=== PATIENT | male | born 1965 | race Caucasian/White ===

== ENCOUNTER 2018-09-08 11:52 | Inpatient (IN) | payer OTHER ==
[~2018-09-08] VITALS: Ht 188 cm; Wt 126.1 kg
[2018-09-08 12:00] VITALS: BP 138/86
[2018-09-08] MEDS ORDERED: VENTOLIN HFA 1818 GM INH (12:02)
[2018-09-08] MEDS ORDERED: MEDROLDOSEPACK PO (12:02)
[2018-09-08] MEDS ORDERED: AUGMENTIN 500-1 EACH PO (12:02)
[2018-09-08 12:37] LABS: HEMATOCRIT 42.2 % (42.0-52.0); HEMOGLOBIN 14.3 gm/dL (14.0-18.0); MCH 31.5 pg (26.0-34.0); MCV 92.7 fL (80.0-100.0); MPV 8.2 fl. (7.2-11.1); NUCLEATED RBCS 0 /100WBC; PLATELET COUNT* 243 thou/uL (150-400); RBC 4.55 mil/uL (4.50-6.00); RDW-CV 14.3 % (10.5-14.5); WBC 19.6 thou/uL (4.0-11.0)
[2018-09-08 12:49] LABS: ANION GAP 9 mmol/L (7-16); BUN 21 mg/dL (7-18); CALCIUM 8.6 mg/dL (8.5-10.1); CHLORIDE 93 mmol/L (98-107); CO2 30 mmol/L (21-32); CREATININE 1.2 mg/dL (0.6-1.3); GLUCOSE 122 mg/dL (70-99); POTASSIUM 3.2 mmol/L (3.5-5.1); SODIUM 132 mmol/L (136-145)
[2018-09-08 12:55] LABS: ALBUMIN 2.7 g/dL (3.4-5.0); ALKALINE PHOSPHATASE 92 U/L (46-116); SGOT 45 U/L (15-37); SGPT 47 U/L (30-65); TOTAL BILIRUBIN 0.7 mg/dL (<0.1-1.0); TOTAL PROTEIN 7.9 g/dL (6.4-8.2); TROPONIN-I LEVEL <0.06 ng/mL (<0.06)
[2018-09-08 13:02] LABS: ABSOLUTE LYMPHOCYTES 0.8 thou/uL (0.8-5.3); ABSOLUTE MONOCYTES 1.6 thou/uL (0.0-1.2); ABSOLUTE NEUTROPHILS 17.2 thou/uL (1.6-8.1); ANISOCYTOSIS 1+; PLATELET ESTIMATE ADEQUATE; POIKILOCYTOSIS 1+
[2018-09-08 14:00] VITALS: BP 138/78
[2018-09-08 16:00] VITALS: BP 138/95
--- NOTE | 2018-09-08 18:17 | EKG ---
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
--- NOTE | 2018-09-08 18:20 | NUR ---
VSS, ASSIMED CARE OF PT FROM ER, ASSESSMENT PERFORMED AND CHARTED, FALL PRECAUTIONS IN PLACE AND CALL LIGHT IN REACH, PT IS A&O4 ON 3L NC UP AD STEF, DENIES ANY PAIN, TRACING SR ON THE MONITOR, PT GOAL IS TO IMPROVE BREATHING AND SAFETY, WILL FOLLOW WITH PLAN OF CARE, AND HOURLY ROUNDS
[2018-09-08 20:30] VITALS: BP 137/85
[2018-09-08 22:37] LABS: URINE BILIRUBIN NEGATIVE (Negative); URINE BLOOD 2+ (Negative); URINE CLARITY CLEAR; URINE COLOR YELLOW; URINE GLUCOSE-RANDOM TRACE (Negative); URINE KETONES NEGATIVE (Negative); URINE LEUKOCYTES NEGATIVE (Negative); URINE NITRITE NEGATIVE (Negative); URINE PROTEIN NEGATIVE (Negative); URINE UROBILINOGEN 0.2 E.U./dl (0.2-1.0)
[2018-09-08 22:52] LABS: BACTERIA None Seen /HPF (None Seen); CASTS None Seen /LPF (None Seen); CRYSTALS None Seen /LPF (None Seen); SQUAMOUS 0-3 Few /LPF (0-3); URINE RBC 0-2 Rare /HPF (0-2); URINE WBC None Seen /HPF (0-5)
[2018-09-08 23:30] VITALS: BP 146/72
[2018-09-09 04:00] VITALS: BP 150/90
[2018-09-09 05:21] LABS: HEMATOCRIT 39.3 % (42.0-52.0); HEMOGLOBIN 13.4 gm/dL (14.0-18.0); MCHC 34.1 g/dL (28.0-37.0); MCV 93.9 fL (80.0-100.0); MPV 8.6 fl. (7.2-11.1); RBC 4.18 mil/uL (4.50-6.00); RDW-CV 14.7 % (10.5-14.5); WBC 13.4 thou/uL (4.0-11.0)
--- NOTE | 2018-09-09 05:36 | NUR ---
VSS. 4L O2 PER NC, O2 SAT 92%. PT REPORTS WORSENED SOA WITH ACTIVITY. PRODUCTIVE COUGH, SPECIMEN SENT TO LAB. POTASSIUM REPLACED PER PROTOCOL, AWAITING RESULTS OF REDRAW. PT HAS DENIED PAIN THROUGHOUT THE NIGHT. CALL LIGHT WITHIN REACH.
[2018-09-09 05:58] LABS: ALBUMIN 2.3 g/dL (3.4-5.0); CALCIUM 8.4 mg/dL (8.5-10.1); CREATININE 1.1 mg/dL (0.6-1.3); POTASSIUM 4.1 mmol/L (3.5-5.1); TOTAL BILIRUBIN 0.4 mg/dL (<0.1-1.0); TOTAL PROTEIN 7.1 g/dL (6.4-8.2)
--- NOTE | 2018-09-09 08:00 | NUR ---
PT RESTING IN BED, APPEARS ALERT O X 4, DENIES CHEST PAIN, DENIES SOB AT REST, ON O2 AT 4L PER NC, O2 SATS 94% , SIGNIFICANT OTHER AT BEDSIDE
[2018-09-09 08:47] VITALS: BP 146/88
[2018-09-09 11:30] VITALS: BP 136/82
--- NOTE | 2018-09-09 17:23 | NUR ---
PT RESTING IN BED WITHOUT C/O , REMAINS ALERT O X4, DENIES CHEST PAIN, DENIES SOB AT RES, ALTHOUGH APPEARS SL DYSPNEIC AT REST, ON O2 AT 4 PER NC, CONT ON IV ABX , PO STEROIDS, TELE HAS BEEN D/C
[2018-09-09 19:42] VITALS: BP 158/95
[2018-09-10] VITALS: BP 160/93
[2018-09-10 02:05] LABS: GLYCOHEMOGLOBIN (HGB A1C) 5.6 % (4.8-5.6)
--- NOTE | 2018-09-10 03:46 | NUR ---
Pt reports increasing SOA. IVF running at 150 ml/hr X4 bags and 5th bag running when pt c/o SOA at rest while trying to sleep. IVF stopped at 0340. Pt coughs when taking deep breaths. Paged RT for breathing treatment as well. BP 150-160/90s for this shift. Pt states he has been voiding regularly. Breath snds coarse with some crackles. Will continue to monitor.
[2018-09-10 05:39] LABS: CALCIUM 8.4 mg/dL (8.5-10.1); HEMATOCRIT 41.3 % (42.0-52.0); HEMOGLOBIN 14.1 gm/dL (14.0-18.0); MCH 32.5 pg (26.0-34.0); MCHC 34.2 g/dL (28.0-37.0); MCV 94.8 fL (80.0-100.0); MPV 8.5 fl. (7.2-11.1); NUCLEATED RBCS 0 /100WBC; POTASSIUM 3.6 mmol/L (3.5-5.1); RBC 4.35 mil/uL (4.50-6.00); RDW-CV 14.6 % (10.5-14.5); WBC 15.7 thou/uL (4.0-11.0)
[2018-09-10 06:14] LABS: PLATELET COUNT* 331 thou/uL (150-400)
--- NOTE | 2018-09-10 08:15 | NUR ---
PT RESTING IN BED, APPEARS ALERT O X 4, DENIES CHEST PAIN, DENIES SOB AT REST, SLTHOUGH APPEARS SL DYSPNEIC AT REST, ON O2 AT 4L PER NC, DATS 91-92%, MOIST COUGH, ABLE TO EXPECTORATE SMALL AMT OF YELLOWISH BLOOD TINGED SPUTUM.
[2018-09-10 08:30] VITALS: BP 158/92
[2018-09-10 08:53] LABS: ABSOLUTE LYMPHOCYTES 2.2 thou/uL (0.8-5.3); ABSOLUTE MONOCYTES 1.4 thou/uL (0.0-1.2); ABSOLUTE NEUTROPHILS 12.1 thou/uL (1.6-8.1); METAMYELOCYTES 1 %
[2018-09-10 08:55] LABS: ANISOCYTOSIS Occasional; PLATELET ESTIMATE ADEQUATE
[2018-09-10 15:50] VITALS: BP 143/83
--- NOTE | 2018-09-10 18:56 | NUR ---
PT REMAINS ALERT O X 4, DENIES CHEST PAIN, REMAINS , CONT ON PO AND IV ABX, PO STEROIDS. IS DYSPNEIC AT REST, SATS 01-02 % ON 4L PER NC, COUGHED UP SMALL OF BLOOD TINGED SOUTUM THIS AM, CHEST XRAY, CONT TO SHOW L,OER LOBE PNEUMONIA, PULMONADY CONSULTED
[2018-09-10 20:02] VITALS: BP 151/83
--- NOTE | 2018-09-10 20:09 | NUR ---
RECEIVED REPORT AND ASSUMED CARE OF PT, ASSESSMENT COMPLETED. PT SITTING UP IN CHAIR, SOB WITH REST. O2 ON AT 4L/NC WITH O2 SAT 88%, INCREASED TO 5L/NC. DISCUSSED BIPAP AT HS. HAVING FREQ PROD COUGH. WESLY LOWER LEGS AND FEET WITH 2+ EDEMA. WILL CONT TO MONITOR AND ASSIST NEEDED.
[2018-09-11] VITALS: BP 155/92
--- NOTE | 2018-09-11 05:49 | NUR ---
MOIST, CONGESTED, PRODUCTIVE COUGH. TOLERATED BIPAP ALL NIGHT. THIS AM PLACED ON NC BUT DECREASED O2 SAT. AT PRESENT TIME ON 15L/HFC. ADJUSTED PER RT. INSTRUCTED ON STAYING AT BEDSIDE, NO MORE AMBULATION INTO BR DUE TO DESATING. HS GOALS OF REST AND COMFORT ACHIEVED.
[2018-09-11 08:32] VITALS: BP 147/89
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
--- NOTE | 2018-09-11 15:07 | 2DMMODE ---
[place] [address] 2 D/M-MODE ECHOCARDIOGRAM Name: RANGEL OKEEFE Room: [address] IN .R.#: [id number] Admission: 09/08/18 Attend Phys: Fatoumata Marmolejo, Discharge: Date of : 61 Date of Service: 09/11/18 1507 Report #: [id number] THIS REPORT FOR: //name// APPROVED REPORT Study performed: 09/11/2018 10:40:57 EXAM: Comprehensive 2D, Doppler, and color-flow Echocardiogram Patient Location: Bedside BSA: 2.53 HR: 80 bpm BP: 147/89 mmHg Other Information Study Quality: Fair Indications Dyspnea Cough, Pulmonary Edema 2D Dimensions IVSd: 13.78 (7-11mm) LVOT Diam: 25.13 (18-24mm) LVDd: 51.78 mm PWd: 12.69 (7-11mm) Ascending Ao: 39.73 (22-36mm) LVDs: 25.26 (25-40mm) Aortic Root: 35.48 mm Volumes Left Atrial Volume (Systole) LA ESV Index: 12.40 mL/m2 Aortic Valve AoV Peak Earle.: 1.23 m/s AO Peak Gr.: 6.10 mmHg LVOT Max P.01 mmHg AO Mean Gr.: 3.94 mmHg LVOT Mean P.77 mmHg LVOT Max V: 1.12 m/s AO V2 VTI: 21.66 cm LVOT Mean V: 0.78 m/s ARI (VTI): 4.08 cm2 LVOT V1 VTI: 17.81 cm Mitral Valve E/A Ratio: 0.64 MV Decel. Time: 339.80 ms MV E Max Earle.: 0.47 m/s MV PHT: 98.54 [place] [address] 2 D/M-MODE ECHOCARDIOGRAM Name: RANGEL OKEEFE Room: [address] IN .R.#: [id number] Admission: 09/08/18 Attend Phys: Fatoumata Marmolejo, Discharge: Date of : 61 Date of Service: 09/11/18 1507 Report #: [id number] MVA (PHT): 2.23 cm2 TDI E/Lateral E': 4.70 E/Medial E': 6.71 Medial E' Earle.: 0.07 m/s Lateral E' Earle.: 0.10 m/s Pulmonary Valve PV Peak Earle.: 1.06 m/s PV Peak Gr.: 4.51 mmHg Tricuspid Valve RAP Estimate: 5.00 mmHg TR Peak Gr.: 10.57 mmHg RVSP: 15.57 mmHg PA Pressure: 15.57 mmHg Left Ventricle The left ventricle is normal size. There is normal LV segmental wall motion. There is normal left ventricular wall thickness Left ventricular systolic function is normal. LVEF is 60-65%. Grade I - abnormal relaxation pattern. Right Ventricle The right ventricle is normal size. The right ventricular systolic function is normal. Atria The left atrium size is normal. The right atrium size is normal. Aortic Valve Mild aortic valve sclerosis. No aortic regurgitation is present. There is no aortic valvular stenosis. Mitral Valve The mitral valve is normal in structure. There is no mitral valve regurgitation noted. No evidence of mitral valve stenosis. Tricuspid Valve The tricuspid valve is normal in structure. Trace tricuspid regurgitation. Pulmonic Valve The pulmonary valve is normal in structure. There is no pulmonic valvular regurgitation[place] [address] 2 D/M-MODE ECHOCARDIOGRAM Name: RANGEL OKEEFE Room: [address] IN [facility]#: [id number] Admission: 09/08/18 Attend Phys: Fatoumata Marmolejo, Discharge: Date of : 61 Date of Service: 09/11/18 1507 Report #: [id number] The aortic root is normal in size. IVC is normal in size and collapses >50% with inspiration. Pericardium There is no pericardial effusion. <Conclusion> The left ventricle is normal size. Left ventricular systolic function is normal. LVEF is 60-65%. Grade I - abnormal relaxation pattern. The right ventricle is normal size. The left atrium size is normal. Mild aortic valve sclerosis. No aortic regurgitation is present. There is no aortic valvular stenosis. The mitral valve is normal in structure. The tricuspid valve is normal in structure. IVC is normal in size and collapses >50% with inspiration. There is no pericardial effusion. There is normal LV segmental wall motion. <ELECTRONICALLY SIGNED> By: Narayan Cantrell MD, FACC 09/11/18 1507 1507 1507 Narayan Cantrell MD, FACC /INF
[2018-09-11 16:38] VITALS: BP 118/70
--- NOTE | 2018-09-11 16:42 | NUR ---
RECEIVED REPORT AND ASSUMED CARE AT 0700. VSS. PT DENIES ANY COMPLAINTS OF PAIN. ASSESSMENT COMPLETED CHARTED. PT UP SBA, ON 15L HF NC. BED LOCKED IN LOWEST POSITION, CALL LIGHT WITHIN REACH. HOURLY ROUNDING COMPLETED AND ALL NEEDS MET. WILL CONTINUE TO MONITOR
[2018-09-11 20:00] VITALS: BP 149/85
--- NOTE | 2018-09-11 20:00 | NUR ---
RECEIVED REPORT AND ASSUMED CARE OF PT, ASSESSMENT COMPLETED. PT ON 15L/HFC, SOB WITH ACTIVITY. HAVING FREQ COUGH WITH THICK SPUTUM. VOIDING WELL PER URINAL. WILL CONT TO MONITOR AND ASSIST NEEDED.
[2018-09-11 23:49] VITALS: BP 149/94
[2018-09-12 05:14] LABS: HEMATOCRIT 43.9 % (42.0-52.0); HEMOGLOBIN 14.7 gm/dL (14.0-18.0); MCH 31.9 pg (26.0-34.0); MCHC 33.5 g/dL (28.0-37.0); MCV 95.2 fL (80.0-100.0); MPV 8.3 fl. (7.2-11.1); RBC 4.61 mil/uL (4.50-6.00); RDW-CV 14.7 % (10.5-14.5); WBC 15.5 thou/uL (4.0-11.0)
[2018-09-12 05:32] LABS: ALBUMIN 2.5 g/dL (3.4-5.0); CALCIUM 8.6 mg/dL (8.5-10.1); CREATININE 0.7 mg/dL (0.6-1.3); MAGNESIUM 2.3 mg/dL (1.8-2.4); POTASSIUM 5.8 mmol/L (3.5-5.1); TOTAL BILIRUBIN 0.7 mg/dL (<0.1-1.0); TOTAL PROTEIN 7.2 g/dL (6.4-8.2)
--- NOTE | 2018-09-12 06:19 | NUR ---
TOLERATED BIPAP DURING NIGHT. RETURNED TO 15L/HFC THIS AM. ASSISTED TO BR DURING NIGHT WITH O2 ESCORT FOR BM. APPEARS TO BE IMPROVING THIS AM WITH BREATHING. HS GOAL OF REST AND SAFETY ACHIEVED. HOURLY ROUNDING OBSERVED.
[2018-09-12 08:18] VITALS: BP 132/80
--- NOTE | 2018-09-12 10:14 | NUR ---
ASSUMED CARE OF PT AROUND 0730 THIS AM. REFER TO ASSESSMENT. PT CONTINUES TO REQUIRE 15 L HIGH FLOW NC FOR OXYGEN TO MAINTAIN SATS >92%. PT STATES HE FEELS HE HAS IMPROVED SOME THOUGH. IV LASIX GIVEN THIS AM. NO OTHER CONCERNS AT THIS TIME. CLWR. WCTM.
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
[2018-09-12 12:00] VITALS: BP 108/72
--- NOTE | 2018-09-12 16:27 | NUR ---
PT SOMEWHAT PROGRESSING TOWARDS GOALS THIS SHIFT. REMAINS ON 15 L/HIGH FLOW NC. PT ABLE TO COUGH UP CLEAR THICK SECRETIONS. VOIDING FREQUENTLY. NO OTHER CONCERNS AT THIS TIME. CLWR. WCTM.
[2018-09-12 16:58] VITALS: BP 140/74
[2018-09-12 21:00] VITALS: BP 148/86
[2018-09-13] VITALS: BP 144/90
[2018-09-13 05:11] LABS: ADENOVIRUS Negative (Negative); INFLUENZA A Negative (Negative); INFLUENZA B Negative (Negative); METAPNEUMOVIRUS Negative (Negative); PARAINFLUENZA 1 Negative (Negative); PARAINFLUENZA 2 Negative (Negative); PARAINFLUENZA 3 Negative (Negative); RHINOVIRUS Negative (Negative); RSV A Negative (Negative); RSV B Negative (Negative)
--- NOTE | 2018-09-13 07:54 | NUR ---
Pt a/o x 4. On O2 15L NC. BiPAP at night. VSS. M/S status (no tele). Shower given per pt request. Denies pain. No apparent distress noted.
[2018-09-13 08:00] VITALS: BP 134/77
[2018-09-13 12:00] VITALS: BP 149/92
--- NOTE | 2018-09-13 13:38 | NUR ---
ASSUMED CARE OF PATIENT THIS AM AT 0730. PATIENT IS ALERT AND ORIENTED X 4. HE DENIES PAIN. PATIENT IS TAKING HIS MEALS WELL. PATIENT'S IV INFILTRATED RESTARTED THIS AFTERNOON. PO ANTIBIOTICS STARTED. PATIENT GIVEN IV LASIX X 1 TODAY. HE HAS BEEN ENCOURAGED TO INCREASE ACTIVITY. PATIENT IS UP IN THE CHAIR AT THIS TIME. WILL CONTINUE PLAN OF CARE. NO FALLS OR INJURY.
[2018-09-13 15:08] LABS: ANTI-DNA SCREEN 2 IU/mL (0-9); ANTI-RNP <0.2 AI (0.0-0.9)
[2018-09-13 16:00] VITALS: BP 132/91
[2018-09-13 19:30] VITALS: BP 151/84
[2018-09-14] VITALS: BP 141/86
--- NOTE | 2018-09-14 02:47 | NUR ---
RECIEVED REPORT AND ASSUMED CARE AT 1900. PT IS MEDSURG. BP A LITTLE ELEVATED, OTHER THAN THAT VITAL SIGNS STABLE. OXYGEN 15L NC. PT UP ADLIB. DENIED ANY PAIN AT THIS TIME. ASSESSMENT COMPLETED, DISCUSSED PLAN OF CARE, AND PT UNDERSTANDS. BED LOCKED AND CALL LIGHT WITHIN REACH. FALL PRECAUTIONS IN PLACE. HOURLY ROUNDING DONE AND ALL NEEDS MET. NURSING WILL CONTINUE TO MONITOR.
[2018-09-14 04:00] VITALS: BP 132/83
[2018-09-14 05:20] LABS: CALCIUM 9.2 mg/dL (8.5-10.1); CREATININE 1.2 mg/dL (0.6-1.3); MAGNESIUM 2.3 mg/dL (1.8-2.4); POTASSIUM 4.7 mmol/L (3.5-5.1)
[2018-09-14 08:00] VITALS: BP 140/85
--- NOTE | 2018-09-14 12:07 | NUR ---
CM left VM for staff at [facility] to determine if insurance will authorize a replacement cpap, awaiting call back.
--- NOTE | 2018-09-14 12:38 | NUR ---
VSS, ASSUMED CARE OF PT IN THE AM, ASSESSMENT PERFORMED AND CHARTED, FALL PRECAUTIONS IN PLACE AND CALL LIGHT IN REACH, PT IS A&O4, UP AD STEF, DENIES ANY PAIN, IS ON 12L NC AND IS TRACING SR ON THE MONITOR, PT GOAL IS TO IMPROVE BREATHING AND SIT UP IN CHAIR, WALK THE UNIT, WILL FOLLOW WITH PLAN OF CARE.
--- NOTE | 2018-09-14 15:47 | NUR ---
PT TRANSFERRED TO UNIT FROM [facility]. PT IS ON 12 LITERS O2 BY NASAL CANNULA. PT IS UP AD STEF. LUNGS ARE COARSE AND DIMINISHED. PT HAD A BOWEL MOVEMENT TODAY. PT HAS PRODUCTIVE COUGH, HAVE NOT OBSERVED SPUTUM AT THIS TIME. PT HAS LT WRIST IV THAT IS SALINE LOCKED. PT HAS REGULAR DIET. FALL RISK PRECAUTIONS IN PLACE. HOURLY ROUNDING COMPLETED. WILL CONTINUE TO MONITOR.
[2018-09-14 16:00] VITALS: BP 146/90
--- NOTE | 2018-09-14 16:17 | NUR ---
VSS, CALLED REPORT TO JSSI NURSE GAVE REPORT, PT PACKED UP BELONGING AND WAS TAKEN DOWN VIA WHEEL CHAIR BY STAFF.
--- NOTE | 2018-09-14 17:37 | NUR ---
PT REMAINED ALERT AND ORIENTED THIS SHIFT. PT HAS NOT C/O PAIN OR N/V. PT STILL ON 12 LITERS O2. BIPAP IN ROOM. FALL RISK PRECAUTIONS IN PLACE. HOURLY ROUNDING COMPLETED. WILL CONTINUE TO MONITOR.
[2018-09-14 20:00] VITALS: BP 132/82
[2018-09-15 01:00] VITALS: BP 127/75
--- NOTE | 2018-09-15 04:49 | NUR ---
PT REMAINED A&Ox4 THROUGHOUT SHIFT. PT IS UP AD STEF. IV IN L WRIST PATENT, SL. TOLERATED REGULAR DIET. VITALS STABLE. STARTED OUT SHIFT ON 12L OF O2, WAS AT 99-100%. GOT APPROVAL FROM RESPIRTORY TO DECREASE TO 10LO2, STABLE AT 95%. DENIED PAIN. BIPAP PUT ON BY RESPIRTORY BEFORE BED. HOURLY ROUNDING COMPLETE. CALL LIGHT WITHIN REACH. WILL CONTINUE TO MONITOR.
[2018-09-15 05:48] LABS: CALCIUM 8.4 mg/dL (8.5-10.1); MAGNESIUM 2.2 mg/dL (1.8-2.4); POTASSIUM 4.6 mmol/L (3.5-5.1)
[2018-09-15 08:41] VITALS: BP 143/86
--- NOTE | 2018-09-15 12:48 | NUR ---
Nutrition: Pt assessed for LOS. Admitted with SOB and cough, PNA. Eating Regular diet. Obstructive sleep apnea with bipap at [facility]. On ABX and steroids. BG 131, alb 2.5, prealb 20.6. Wt: 278#. No nutrition interventions needed at this time. Low risk.
--- NOTE | 2018-09-15 14:06 | NUR ---
RANDEE has still not received the faxed order that needs to be signed, in order to initiate trying to replace Pt's cpap. RANDEE spoke with Julieta at [facility] again, requesting that form be faxed. Awaiting fax.
[2018-09-15 16:23] VITALS: BP 145/83
--- NOTE | 2018-09-15 17:20 | NUR ---
PT REMAINED ALERT AND ORIENTED THIS SHIFT. PT DENIED ANY NEEDS THIS SHIFT. FALL RISK PRECAUITONS IN PLACE. HOURLY ROUNDING COMPLETED. WILL CONTINUE TO MONITOR.
[2018-09-15 20:00] VITALS: BP 143/93
[2018-09-16 04:32] LABS: CALCIUM 8.7 mg/dL (8.5-10.1); CREATININE 1.1 mg/dL (0.6-1.3); MAGNESIUM 2.4 mg/dL (1.8-2.4); POTASSIUM 5.4 mmol/L (3.5-5.1)
--- NOTE | 2018-09-16 05:32 | NUR ---
ASSESMENT: PT REMAIN ALERT AND ORIENT TIMES FOUR. PT WAS SATTING UP IN THE CHAIR UPON SHIFT CHANGE. PT STATE THAT HE FEELS MUCH BETTER SINCE ADMISSION. TOLERATING CPAP AT NOC. DENIES PAIN. POTASSIUM WAS 5.4 AND MAG WAS 2.4 THIS AM. NO SUPPLEMENT NEEDED PER ELECT PROTOCAL. GOOD PROGRESS TOWARDS DC GOALS, WILL CONTINUE TO MONITOR.
[2018-09-16 08:05] VITALS: BP 132/85
[2018-09-16 16:00] VITALS: BP 142/77
--- NOTE | 2018-09-16 18:50 | NUR ---
PT IS ALERT AND ORIENTED X 4. LUNGS COARSE. OXYGEN @ 6L/NC. BILAT PEDAL EDEMA. PLACED ON FLUID RESTRICTION-2000 MLS. IV PATENT. DENIES PAIN AND NAUSEA. HOURLY ROUNDS MAINTAINED. WILL USE CALL LIGHT FOR ASSISTANCE.
[2018-09-16 21:00] VITALS: BP 132/82
--- NOTE | 2018-09-17 04:55 | NUR ---
ALERT AND ORIENTED X4. UP AD STEF TO BATHROOM WITH O2 AT 6L/NC. CONTINUES TO RECEIVE BREATHING TREATMENTS AND ANTIBIODICS. LUNGS SOUNDS ARE COARSE AND HAVE CRACKLES IN RIGHT LUNG BASE. NO C/O PAIN OR NAUSEA. REMAINS ON 2000ML FLUID RESTRICTION. CALL LIGHT WITHN REACH. PROGRESSING TOWARD DISCHARGE GOAL.
[2018-09-17 05:26] LABS: CALCIUM 8.8 mg/dL (8.5-10.1); CREATININE 1.1 mg/dL (0.6-1.3); MAGNESIUM 2.2 mg/dL (1.8-2.4); POTASSIUM 4.8 mmol/L (3.5-5.1)
[2018-09-17 08:15] VITALS: BP 136/81
[2018-09-17 17:38] VITALS: BP 134/85
--- NOTE | 2018-09-17 18:34 | NUR ---
PT ALERT AND ORIENTED X 4. DENIED NAUSEA AND PAIN DURING DAY. OXYGEN @ 5 L/NC. PT AMBULATED WITH PORTABLE OXYGEN IN HALLWAYS ON UNIT. NO IV ACCESS. RECEIVING PO MEDICATIONS ONLY. EDEMA PRESENT BILAT LOWER EXTREMITIES, PT ON FLUID RESTRICTION OF 2000 MLS PER 24 HOURS. HOURLY ROUNDS MAINTAINED. WILL USE CALL LIGHT FOR ASSISTANCE.
[2018-09-17 20:00] VITALS: BP 126/71
[2018-09-18 04:16] LABS: CALCIUM 8.6 mg/dL (8.5-10.1); CREATININE 1.2 mg/dL (0.6-1.3); MAGNESIUM 2.2 mg/dL (1.8-2.4)
[2018-09-18 04:17] LABS: POTASSIUM 3.5 mmol/L (3.5-5.1)
--- NOTE | 2018-09-18 05:49 | NUR ---
ASSUMED PATIENT CARE AT 1900. PATIENT ALERT AND ORIENTED TIMES FOUR. NON-COMPLIANT WITH BIPAP. OXYGEN VIA NC AT 5L. AMBULATES INDEPENDENTLY IN ROOM. NEGOTIATOR AND HOURLY ROUNDING COMPLETED DOCUMENTED
[2018-09-18] MEDS ORDERED: PREDNISONE 10 M10 MG PO (07:58)
[2018-09-18] MEDS ORDERED: LASIX 20 MG TAB20 MG PO (07:58)
[2018-09-18] MEDS ORDERED: KLOR-CON 1010 MEQ PO (07:59)
[2018-09-18 08:00] VITALS: BP 133/87
--- NOTE | 2018-09-18 13:56 | NUR ---
PT.TO DISCHARGE TODAY. SIGNED FORM FOR NEW CPAP TO REPLACE PT.S OLD ONE THAT WAS LOST OR STOLEN. FAXED TO [facility] [phone]. R.T.DOING RESTING AND EXERCISE SATS AT THIS TIME.
--- NOTE | 2018-09-18 15:17 | NUR ---
FORM FOR NEW CPAP SIGNED BY . FAXED TO [facility] WITH HOSPTIAL SETTINGS [phone]. PER R.T.RESTING AND EXERCISE SATS.,PT.NEEDS HOME O2. DISCUSSED WITH PT. PT.CHOSE [facility] THEY CONTRACT WITH HIS INSURANCE. FAXED FACE SHEET,SATS,ORDER AND DISCHARGE SUMMARY CARE NOTES TO [facility]. SHE WILL HAVE PORTABLE TANK DELIVERED TO PT.S ROOM. NOTIFIED [facility] THAT ORDERED [facility]. SHE SAID AFTER HE SEES IN 2 WEEKS, HIS OFFICE CAN SET UP FOR PT. WILL PUT THIS ON HIS DISCHARGE INSTRUCTIONS.
[2018-09-18 15:23] VITALS: BP 133/87
[2018-09-18 16:29] VITALS: BP 133/87
[2018-09-18 16:55] VITALS: BP 133/87
--- NOTE | 2018-09-18 18:01 | NUR ---
PT IS ALERT AND ORIENTED X 4. OXYGEN DECREASE TO 3 L/NC. PT AMBULATES IN ROOM. NO IV ACCESS. EDEMA PRESENT IN LOWER EXTREMITIES BILAT. PT DENIES NAUSEA AND PAIN. KEPT ON FLUID RESTRICTION DURING DAY OF 1999 CC. DISCHARGE INSTRUCTIONS GIVEN ALONG WITH PRESCRIPTIONS. PT WAS SUPPLIED TANK OF OXYGEN BY [facility] AND EDUCATED. PT AMBULATED WITH PORTABLE OXYGEN @ 4 L/NC AND PERSONAL BELONGINGS OFF UNIT BY NURSING STAFF TO LEAVE WITH SON BY PRIVATE CAR @ 6287.
== END 2018-09-18 16:55 | disposition home or self-care (01) | DRG 682 ==
LOC: M.ERS 11:52 → M.2W 12:55 → M.TBA-ER 12:55 → M.2W 16:08 → M.ORTHSURG 09-14 15:30
PROVIDERS: Emergency Medicine Emergency Medical Services; Internal Medicine; Physician Assistant; ADMIT Internal Medicine
PROC: 5A09357 Assistance with Respiratory Ventilation, Less than 24 Consecutive Hours, Continuous Positive Airway Pressure (ICD-10-PCS; principal; 2018-09-13)
PROC: 5A09357 Assistance with Respiratory Ventilation, Less than 24 Consecutive Hours, Continuous Positive Airway Pressure (ICD-10-PCS; 2018-09-15)
DX: N17.9 Acute kidney failure, unspecified (principal); J15.9 Unspecified bacterial pneumonia; J96.01 Acute respiratory failure with hypoxia; I50.33 Acute on chronic diastolic (congestive) heart failure; R65.11 Systemic inflammatory response syndrome (SIRS) of non-infectious origin with acute organ dysfunction; R04.2 Hemoptysis; J84.9 Interstitial pulmonary disease, unspecified; G47.33 Obstructive sleep apnea (adult) (pediatric); Y95 Nosocomial condition; R74.0 Nonspecific elevation of levels of transaminase and lactic acid dehydrogenase [LDH]; Z87.891 Personal history of nicotine dependence; Z79.899 Other long term (current) drug therapy

== ENCOUNTER 2018-10-21 09:53 | Emergency (ER) | payer OTHER ==
[~2018-10-21] VITALS: Ht 188 cm; Wt 117.9 kg
[~2018-10-21 09:53] MED LIST: AUGMENTIN 500-1 EACH PO; KLOR-CON 1010 MEQ PO; LASIX 20 MG TAB20 MG PO; MEDROLDOSEPACK PO; PREDNISONE 10 M10 MG PO; VENTOLIN HFA 1818 GM INH
[2018-10-21] MEDS ORDERED: TESSALON PERLE100 MG PO (10:09)
[2018-10-21 11:22] LABS: ABSOLUTE BASOPHILS 0.1 thou/uL (0.0-0.2); ABSOLUTE EOSINOPHILS 0.1 thou/uL (0.0-0.7); ABSOLUTE LYMPHOCYTES 1.2 thou/uL (0.8-5.3); ABSOLUTE MONOCYTES 1.2 thou/uL (0.0-1.2); ABSOLUTE NEUTROPHILS 5.6 thou/uL (1.6-8.1); BASOPHILS 0.9 %; EOSINOPHILS 1.2 %; HEMATOCRIT 42.2 % (42.0-52.0); HEMOGLOBIN 14.4 gm/dL (14.0-18.0); LYMPHOCYTES 14.3 %; MCH 32.1 pg (26.0-34.0); MCHC 34.2 g/dL (28.0-37.0); MCV 94.1 fL (80.0-100.0); MONOCYTES 14.4 %; MPV 7.4 fl. (7.2-11.1); NUCLEATED RBCS 0 /100WBC; PLATELET COUNT* 233 thou/uL (150-400); POLYS 69.2 %; RBC 4.49 mil/uL (4.50-6.00); RDW-CV 14.7 % (10.5-14.5); WBC 8.1 thou/uL (4.0-11.0)
[2018-10-21 11:30] LABS: CALCIUM 8.8 mg/dL (8.5-10.1); CREATININE 1.2 mg/dL (0.6-1.3); POTASSIUM 4.2 mmol/L (3.5-5.1)
[2018-10-21 11:35] LABS: ALBUMIN 3.3 g/dL (3.4-5.0); MAGNESIUM 1.9 mg/dL (1.8-2.4); TOTAL BILIRUBIN 0.4 mg/dL (<0.1-1.0); TOTAL PROTEIN 6.9 g/dL (6.4-8.2)
[2018-10-21 11:57] LABS: BE -0.2 mmol/L (-2 to +3); PCO2 39.1 mmHg (35.0-45.0); PO2 70.8 mmHg (75.0-100.0); pH 7.411 (7.340-7.450)
[2018-10-21 12:38] LABS: URINE BILIRUBIN NEGATIVE (Negative); URINE BLOOD NEGATIVE (Negative); URINE CLARITY CLEAR; URINE COLOR YELLOW; URINE GLUCOSE-RANDOM NEGATIVE (Negative); URINE KETONES NEGATIVE (Negative); URINE LEUKOCYTES-REFLEX NEGATIVE (Negative); URINE NITRITE-REFLEX NEGATIVE (Negative); URINE PROTEIN NEGATIVE (Negative); URINE UROBILINOGEN 0.2 E.U./dl (0.2-1.0)
[2018-10-21 13:07] LABS: INFLUENZA A ANTIGEN None Detected (None Detect); INFLUENZA B ANTIGEN None Detected (None Detect)
[2018-10-21] MEDS ORDERED: TUSSIONEX PENN115 ML PO (13:39)
[2018-10-21] MEDS ORDERED: LEVAQUIN 750 M750 MG PO (13:39)
[2018-10-21] MEDS ORDERED: PREDNISONE50 MG PO (14:02)
[2018-10-21 14:06] VITALS: BP 162/98
== END 2018-10-21 14:07 | disposition home or self-care (01) ==
LOC: M.ERS 09:53
PROVIDERS: Personal Emergency Response Attendant
DX: J18.9 Pneumonia, unspecified organism (principal)

== ENCOUNTER 2020-02-11 14:10 | Inpatient (IN) | payer OTHER ==
[~2020-02-11] VITALS: Ht 185.4 cm; Wt 122.5 kg
[~2020-02-11 14:10] MED LIST changes: +LEVAQUIN 750 M750 MG PO; +PREDNISONE50 MG PO; +TESSALON PERLE100 MG PO; +TUSSIONEX PENN115 ML PO
[2020-02-11 14:16] VITALS: BP 147/102
[2020-02-11] MEDS ORDERED: KEFLEX500 M2 PO (14:21)
[2020-02-11 15:42] LABS: ABSOLUTE BASOPHILS 0.1 thou/uL (0.0-0.2); ABSOLUTE EOSINOPHILS 0.2 thou/uL (0.0-0.7); ABSOLUTE LYMPHOCYTES 1.9 thou/uL (0.8-5.3); ABSOLUTE MONOCYTES 1.6 thou/uL (0.0-1.2); ABSOLUTE NEUTROPHILS 7.8 thou/uL (1.6-8.1); BASOPHILS 1.1 %; EOSINOPHILS 1.5 %; HEMOGLOBIN 15.7 gm/dL (14.0-18.0); LYMPHOCYTES 16.3 %; MCH 33.5 pg (26.0-34.0); MCHC 34.8 g/dL (28.0-37.0); MONOCYTES 13.6 %; MPV 7.7 fl. (7.2-11.1); NUCLEATED RBCS 0 /100WBC; PLATELET COUNT* 259 thou/uL (150-400); POLYS 67.5 %; RBC 4.68 mil/uL (4.50-6.00); RDW-CV 13.7 % (10.5-14.5); WBC 11.6 thou/uL (4.0-11.0)
[2020-02-11 15:49] LABS: CALCIUM 8.7 mg/dL (8.5-10.1); CREATININE 1.3 mg/dL (0.6-1.3); POTASSIUM 4.1 mmol/L (3.5-5.1)
[2020-02-11 15:54] LABS: ALBUMIN 3.5 g/dL (3.4-5.0); TOTAL BILIRUBIN 0.4 mg/dL (<0.1-1.0); TOTAL PROTEIN 8.7 g/dL (6.4-8.2)
[2020-02-11 16:26] VITALS: BP 142/84
[2020-02-11 16:50] VITALS: BP 173/98
[2020-02-11] MEDS ORDERED: SUPER THERAVIT1 EACH PO (18:05)
[2020-02-11] MEDS ORDERED: SUPER B MAXI C0.4 MG PO (18:05)
[2020-02-11] MEDS ORDERED: OMEGA 3-6-9 CO400 MG PO (18:06)
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
--- NOTE | 2020-02-11 19:35 | NUR ---
I TOOK REPORT ON THE PATIENT AND ASSISTED YOBANY WITH THIS ADMISSION UPON ARRIVAL AT 1730.
[2020-02-11 20:15] VITALS: BP 140/85
--- NOTE | 2020-02-12 05:06 | NUR ---
PT SLEPT OFF AND ON OVERNIGHT. RECEIVED SCHEDULED IBUPROFEN, AND PRN TYLENOL AND TRAMADOL FOR CO PAIN LLE. CULTURES OBTAINED OF WOUND LLE AND SENT TO LAB, WOUND CARE PERFORMED AND DRSG CHANGED. RAC IVF INFUSING PER PUMP, ABX GIVEN ORDERED. PT UP AD STEF IN ROOM. ROOM AIR. ABLE TO USE CALL LITE AND MAKE NEEDS KNOWN.
[2020-02-12 07:40] VITALS: BP 151/97
[2020-02-12 08:36] LABS: HEMATOCRIT 41.2 % (42.0-52.0); HEMOGLOBIN 14.3 gm/dL (14.0-18.0); MCH 33.5 pg (26.0-34.0); MCHC 34.8 g/dL (28.0-37.0); MCV 96.1 fL (80.0-100.0); MPV 7.4 fl. (7.2-11.1); RBC 4.28 mil/uL (4.50-6.00); RDW-CV 13.8 % (10.5-14.5); WBC 6.4 thou/uL (4.0-11.0)
[2020-02-12 08:56] LABS: ALBUMIN 2.9 g/dL (3.4-5.0); CALCIUM 7.7 mg/dL (8.5-10.1); CREATININE 1.2 mg/dL (0.6-1.3); POTASSIUM 4.5 mmol/L (3.5-5.1); TOTAL BILIRUBIN 0.5 mg/dL (<0.1-1.0); TOTAL PROTEIN 7.3 g/dL (6.4-8.2)
[2020-02-12 16:00] VITALS: BP 148/84
--- NOTE | 2020-02-12 16:54 | NUR ---
SW met with pt to complete initial assessment, introduce self, and SW role. Pt alert, oriented, pleasant. pt lives at home alone. pt does not expect any dc needs at this time. Pt determined that he would be able to have his dtr's friend be able to retrieve pt keys to take care of his cats at his home while pt is in the hospital.
--- NOTE | 2020-02-12 17:44 | NUR ---
PATIENT IS ALERT AND ORIENTED X 4. HE DOES GET UP TO THE BATHROOM AD STEF. NO COMPLAINTS OF PAIN TODAY. HE HAS BEEN WATCHING TV MOST OF THE DAY. ALL MEDICATIONS HAVE BEEN ADMINISTERED. HE TURNS HIMSELF IN THE BED. HE HAS BEEN IN CONTACT WITH HIS DAUGHTER THROUGHOUT THE DAY AND SHE IS UP TO DATE ON HIS CONDITION. I DID PROVIDE WOUND CARE TODAY AND HE TOLERATED IT WELL. CALL LIGHT IN EASY REACH AND HE DOES MAKE HIS NEEDS KNOWN.
[2020-02-12 20:00] VITALS: BP 155/90
[2020-02-13 05:26] LABS: HEMATOCRIT 43.8 % (42.0-52.0); HEMOGLOBIN 15.1 gm/dL (14.0-18.0); MCH 33.2 pg (26.0-34.0); MCHC 34.5 g/dL (28.0-37.0); MCV 96.2 fL (80.0-100.0); MPV 7.8 fl. (7.2-11.1); RBC 4.55 mil/uL (4.50-6.00); RDW-CV 13.6 % (10.5-14.5); WBC 6.1 thou/uL (4.0-11.0)
--- NOTE | 2020-02-13 05:27 | NUR ---
PT SLEPT OFF AND ON OVERNIGHT. UP TO BR INDEP TO VOID WITHOUT DIFFICULTY. RAC IVF INFUSING PER PUMP, ABX GIVEN ORDERED. AM LABS. DRSG TO LLE CHANGED NEEDED OVERNIGHT WHEN IT SLIPPED OFF WITH AMBULATION. SCHEDULED IBUPROFEN GIVEN ORDERED, DENIES NEED FOR FURTHER PAIN MED. AOX4, ABLE TO USE CALL LITE AND MAKE NEEDS KNOWN.
[2020-02-13 05:42] LABS: CALCIUM 8.2 mg/dL (8.5-10.1); CREATININE 1.2 mg/dL (0.6-1.3); MAGNESIUM 2.1 mg/dL (1.8-2.4); POTASSIUM 4.1 mmol/L (3.5-5.1); TOTAL BILIRUBIN 0.5 mg/dL (<0.1-1.0); TOTAL PROTEIN 7.8 g/dL (6.4-8.2)
[2020-02-13 08:00] VITALS: BP 148/98
--- NOTE | 2020-02-13 17:09 | NUR ---
PATIENT HAS BEEN KEEPING HIS LEFT LEG ELEVATED AND WATCHING TV MOST OF THE DAY. HE EATS WELL AND DRINKS ALOT OF FLUIDS. IV ANTIBIOTICS CONTINUE FOR CELLULITIS TO THE LEFT LOWER LEG. I DID CHANGE THE DRESSING TODAY AND I WRAPPED HIS LEFT LOWER LEG FROM THE TOES TO THE KNEE FOR THE SWELLING. HE IS ALERT AND ORIENTED X 4 AND IS UP AD STEF INDEPENDENTLY.
[2020-02-13 17:15] VITALS: BP 156/100
[2020-02-13 20:30] VITALS: BP 169/57
--- NOTE | 2020-02-14 04:57 | NUR ---
PATIENT SLEPT WELL DURING THIS SHIFT. PT U AD STEF TO BATHROOM. PT WITH LT LEG CELLULITIS. DSG ON LT LEG C/D/I; COVERED WITH ERICA WRAP; ELEVATED AT TIMES. PT DENIES PAIN AT THIS TIME. PT IS ON ROOM AIR. FLUIDS/ANTIBIOTICS INFUSING PER DR ORDER. FRQUENTLY USED ITEMS AND CALL LIGHT WITHIN REACH. SIDERAILS UPX2. WILL CONTINUE TO MONITOR.
[2020-02-14 07:25] LABS: HEMATOCRIT 44.3 % (42.0-52.0); HEMOGLOBIN 15.3 gm/dL (14.0-18.0); MCH 33.5 pg (26.0-34.0); MCHC 34.6 g/dL (28.0-37.0); MCV 96.9 fL (80.0-100.0); MPV 7.5 fl. (7.2-11.1); RBC 4.57 mil/uL (4.50-6.00); RDW-CV 13.6 % (10.5-14.5); WBC 6.8 thou/uL (4.0-11.0)
[2020-02-14 07:42] LABS: ALBUMIN 3.1 g/dL (3.4-5.0); CALCIUM 8.5 mg/dL (8.5-10.1); CREATININE 1.2 mg/dL (0.6-1.3); POTASSIUM 4.2 mmol/L (3.5-5.1); TOTAL BILIRUBIN 0.4 mg/dL (<0.1-1.0); TOTAL PROTEIN 7.6 g/dL (6.4-8.2)
[2020-02-14 07:50] VITALS: BP 129/86
--- NOTE | 2020-02-14 12:57 | CON ---
[address] [address] CONSULTATION Name: RANGEL OKEEFE Room: [address] M.R.#: [id number] Admission: 02/11/20 Attend Phys: Fatoumata Marmolejo MD Discharge: Date of : 61 Report #: [id number] THIS REPORT FOR: //name// cc: Roman Leija MD, Anthony MD ~ THIS REPORT FOR: //name// CC: Roman Marmolejo DATE OF SERVICE: 02/13/2020 INFECTIOUS DISEASE CONSULTATION ATTENDING PHYSICIAN: Fatoumata Marmolejo MD REASON FOR EVALUATION: Inflammatory process involving the left lower extremity has a wound, perhaps as a result of a spider bite, has been complicated by inflammatory eruption. HISTORY OF PRESENT ILLNESS: Chart reviewed, patient examined. This is a 54-year-old man with not significant medical history who believes he was ____ by a spider in the pretibial site. This was noted to have increasing inflammation associated with it that extended from below the knee distally, which was associated with pain, although he was still able to ambulate. He was not aware of systemic illness including fevers or chills. Appetite has generally been okay. No pulmonary or gastrointestinal related complaints. He was evaluated as outpatient, treated with cephalexin, continued to worsen. At this point, he is not really toxic. He has been started empirically on therapy with vancomycin, ceftriaxone and fluconazole. CURRENT MEDICATIONS: Include above noted antimicrobials as well as tramadol, ibuprofen, famotidine, enoxaparin, p.r.n. analgesics and antiemetics. PAST MEDICAL HISTORY: Otherwise, unremarkable, facial reconstruction. SOCIAL HISTORY: Former smoker, occasional ethanol, no illicit drug use. FAMILY HISTORY: Noncontributory. REVIEW OF SYSTEMS: Otherwise, unremarkable 10-point review of systems with exception of the above. PHYSICAL EXAMINATION: GENERAL: He is alert, cooperative, appropriate, appears to [place] [address] CONSULTATION Name: RANGEL OKEEFEMOND Room: [address] ..#: [id number] Admission: 02/11/20 Attend Phys: Fatoumata Marmolejo MD Discharge: Date of : 61 Report #: [id number] VITAL SIGNS: Temperature 97.8, pulse 70, respirations 20, blood pressure 148/98. SKIN: Warm, dry, no rashes. HEENT: Normocephalic. Extraocular muscles intact. NECK: Supple. LUNGS: Generally clear to auscultation bilaterally. HEART: Regular rate and rhythm without murmur. ABDOMEN: Obese, soft, nontender. EXTREMITIES: Left lower extremity has a mid pretibial ulceration. There is moderate degree of inflammation, distally there appears to be some tinea pedis. There is some moderate degree of inflammation there as well. Overall degree of swelling is 2-3+. GENITOURINARY: Deferred. RECTAL: Deferred. LABORATORY DATA: Culture preliminarily shows growth of Staphylococcus aureus. Blood cultures are sterile thus far. Electrolytes: Sodium 140, potassium 4.1, chloride 106, bicarbonate is 29, anion gap of 5, BUN and creatinine 11 and 1.2, glucose of 92. LFTs unremarkable. Albumin of 3, total protein 7.8, estimated GFR 63. CBC: White count 6.1, H and H 15.1 and 43.8, platelets of 238. Lactic acid 1.1. ASSESSMENT: Left lower extremity skin and soft tissue infection. There is ulceration as well as an inflammatory eruption, does have distally suggests some tinea pedis as well. Agree with current approach with empiric therapy. Staph aureus seems to be the pathogen in this setting, I think he has also got tinea pedis, so continue the antifungal. Agree with elevation of the limb also compression. I suspect he has a degree of venous stasis insufficiency as well. We will likely transition to oral antibiotics prior to discharge. <ELECTRONICALLY SIGNED> By: Pito Lombardi MD 02/14/20 1257 [id number] [id number] Lombardi MD /nt
[2020-02-14 16:00] VITALS: BP 175/93
--- NOTE | 2020-02-14 16:49 | NUR ---
PATIENT SHOWERED THIS AFTERNOON, DRESSING REPLACED TO LEFT LEG. IVF AND ABX INFUSED ORDERED. DR. BAY HERE THIS AFTERNOON AND NOTIFIED THAT WOUND CULTURES GROW STAPH SMITA. ABX CHANGED TO Q8 KEFZOL PER DR. BAY. NO COMPLAINTS OF PAIN. UP AD STEF WITHOUT DIFFICULTY.
[2020-02-14 21:23] VITALS: BP 174/92
[2020-02-15 07:20] VITALS: BP 156/98
[2020-02-15 11:02] VITALS: BP 156/98
[2020-02-15] MEDS ORDERED: IBUPROFEN 600600 M1 PO (12:27)
[2020-02-15] MEDS ORDERED: FLUCONAZOLE 10100 MG PO (12:27)
[2020-02-15] MEDS ORDERED: TRAMADOL 50 MG50 MG PO (12:27)
--- NOTE | 2020-02-15 13:18 | NUR ---
PATIENT DRESSING TO LEFT LEG CHANGED AND WOUND PHOTO OBTAINED PER PROTCOL. DR. BAY CHANGED PATIENT OVER TO PO ABX, STARTED THIS SHIFT. PATIENT IV DC'D. DICHARGE TO HOME. VERBALIZES UNDERSTANDING OF PAPERWORK AND SCRIPT. PATIENT TAKEN OUT VIA WHEELCHAIR AND DROVE OWN CAR. WOUND SUPPLIES GIVEN.
--- NOTE | 2020-02-15 14:52 | NUR ---
WOUND NURSE: PATIENT DISCHARGED FROM FACILITY PRIOR TO THIS NURSE ARRIVING TO ASSESS WOUNDS. PATIENT IS HOWEVER SCHEDULED TO BE SEEN IN [facility].
== END 2020-02-15 13:19 | disposition home or self-care (01) | DRG 603 ==
LOC: M.ERS 14:10 → M.TBA-ER 15:13 → M.3W 15:13
PROVIDERS: Physician Assistant; ADMIT Internal Medicine; ATTEND Internal Medicine
DX: L03.116 Cellulitis of left lower limb (principal); B95.61 Methicillin susceptible Staphylococcus aureus infection as the cause of diseases classified elsewhere; B35.3 Tinea pedis; Z87.891 Personal history of nicotine dependence; Z79.2 Long term (current) use of antibiotics; Z79.899 Other long term (current) drug therapy

== ENCOUNTER → 2020-02-25 | Outpatient (CLI) | payer OTHER ==
[~2020-02-25] MED LIST changes: +FLUCONAZOLE 10100 MG PO; +IBUPROFEN 600600 M1 PO; +KEFLEX500 M2 PO; +OMEGA 3-6-9 CO400 MG PO; +SUPER B MAXI C0.4 MG PO; +SUPER THERAVIT1 EACH PO; +TRAMADOL 50 MG50 MG PO
--- NOTE | 2020-02-27 12:32 | CON ---
[address] [address] CONSULTATION Name: RANGEL OKEEFE Room: [facility]#: [id number] Admission: 02/25/20 Attend Phys: Alicja Gupta MD Discharge: Date of : 61 Report #: [id number] THIS REPORT FOR: //name// cc: Roman Leija MD, Anthony MD ~ THIS REPORT FOR: //name// CC: Roman Gupta DATE OF SERVICE: 02/25/2020 ATTENDING PHYSICIAN: Dr. Gupta. REASON FOR EVALUATION: Post-hospitalization skin and soft tissue infection due to what was presumed to be some sort of bite complicated by skin and soft tissue infection with abscess due to Staphylococcus aureus. HISTORY OF PRESENT ILLNESS: The patient returns today in followup. Generally, he feels better systemically. Denies any fevers or chills. Appetite has been good. He has overall less localizing signs and symptoms including pain, specifically there is slight less drainage. On examination, the site shows marked decrease in the degree of surface inflammation. There is still some moderate debris and devitalized tissue within the wound. He has got heaped up margins still several millimeters deep. Dr. Gupta did debride the site. It was somewhat friable. It did have some undermining as well. There was no exposed hard tissue or bone over the pretibial site. ASSESSMENT AND PLAN: Skin and soft tissue infection due to Staph aureus left pretibial site, presumably is a complication of a spider bite. We will continue the cephalexin for additional 10 days, see him back in 1 week. Continue wound care as prescribed by Dr. Gupta. <ELECTRONICALLY SIGNED> By: Pito Lombardi MD 02/27/20 1232 [id number] Lombardi MD /nt
== END ==
LOC: M.WC 04:21
PROVIDERS: ATTEND Surgery
DX: T63.301A Toxic effect of unspecified spider venom, accidental (unintentional), initial encounter (principal); L97.822 Non-pressure chronic ulcer of other part of left lower leg with fat layer exposed; Z87.891 Personal history of nicotine dependence; Y92.89 Other specified places as the place of occurrence of the external cause; Y99.8 Other external cause status

== ENCOUNTER → 2020-03-03 | Outpatient (CLI) | payer OTHER | LOC: M.WC 06:30 | PROVIDERS: ATTEND Surgery | DX: T63.391D Toxic effect of venom of other spider, accidental (unintentional), subsequent encounter (principal); G47.30 Sleep apnea, unspecified; Z87.891 Personal history of nicotine dependence ==

== ENCOUNTER → 2020-03-10 | Outpatient (CLI) | payer OTHER | LOC: M.WC 04:20 | PROVIDERS: ATTEND Surgery | DX: T63.301D Toxic effect of unspecified spider venom, accidental (unintentional), subsequent encounter (principal); G47.30 Sleep apnea, unspecified; Z87.891 Personal history of nicotine dependence ==

== ENCOUNTER → 2020-03-17 | Outpatient (CLI) | payer OTHER | LOC: M.WC 03:05 | PROVIDERS: ATTEND Surgery | DX: T63.391D Toxic effect of venom of other spider, accidental (unintentional), subsequent encounter (principal); G47.30 Sleep apnea, unspecified; Z87.891 Personal history of nicotine dependence ==

== ENCOUNTER 2020-04-08 07:36 | Emergency (ER) | payer OTHER ==
[~2020-04-08] VITALS: Ht 185.4 cm; Wt 117.9 kg
[2020-04-08 08:42] LABS: ABSOLUTE EOSINOPHILS 0.1 thou/uL (0.0-0.7); ABSOLUTE LYMPHOCYTES 1.1 thou/uL (0.8-5.3); ABSOLUTE MONOCYTES 0.7 thou/uL (0.0-1.2); ABSOLUTE NEUTROPHILS 7.7 thou/uL (1.6-8.1); BASOPHILS 0.3 %; EOSINOPHILS 0.7 %; HEMATOCRIT 47.1 % (42.0-52.0); HEMOGLOBIN 16.6 gm/dL (14.0-18.0); LYMPHOCYTES 11.8 %; MCH 34.2 pg (26.0-34.0); MCHC 35.1 g/dL (28.0-37.0); MCV 97.2 fL (80.0-100.0); MONOCYTES 7.1 %; MPV 7.2 fl. (7.2-11.1); NUCLEATED RBCS 0 /100WBC; PLATELET COUNT* 199 thou/uL (150-400); POLYS 80.1 %; RBC 4.84 mil/uL (4.50-6.00); RDW-CV 14.3 % (10.5-14.5); WBC 9.6 thou/uL (4.0-11.0)
[2020-04-08 09:01] LABS: PROTIME 10.7 Seconds (9.20-11.50)
[2020-04-08 09:24] LABS: CALCIUM 8.4 mg/dL (8.5-10.1); CREATININE 1.3 mg/dL (0.6-1.3); POTASSIUM 4.2 mmol/L (3.5-5.1)
[2020-04-08 09:35] LABS: ALBUMIN 3.7 g/dL (3.4-5.0); TOTAL BILIRUBIN 0.5 mg/dL (<0.1-1.0); TOTAL PROTEIN 7.5 g/dL (6.4-8.2)
[2020-04-08 10:01] LABS: ESR (SEDRATE) 2 mm/hr (0-20)
[2020-04-08] MEDS ORDERED: MEDROLDOSEPACK PO (10:45)
[2020-04-08 11:50] VITALS: BP 157/95
--- NOTE | 2020-04-08 13:18 | EKG ---
[place] [address] ELECTROCARDIOGRAM REPORT Name: RANGEL OKEEFE Room: [facility]#: [id number] Admission: 04/08/20 Attend Phys: Discharge: 04/08/20 Date of : 61 Date of Service: 04/08/208[address] Report #: [id number] THIS REPORT FOR: //name// [facility] ED Test Date: 2020-04-08 Test Time: 08:21:54 Pat Name: RANGEL OKEEFE Department: Room: Gender: App[place]ment Coord[place] [facility] [place] 1965 Requested By: Daphne Davis Order Number: [id number] MD: Rangel Morin Measurements Intervals [place] Rate: 75 P: 12 WI: 151 QRS: 11 QRSD: 103 T: 24 QT: 401 QTc: 448 Interpretive Statements Sinus rhythm Atrial premature complex Compared to ECG 09/08/2018 12:27:24 Atrial premature complex(es) now present Electronically Signed On 04-08-2020 13:18:31 CDT by Rangel Morin [email or web address] <ELECTRONICALLY SIGNED> By: Rangel Morin MD, [facility] 04/08/20 1318 0 0 Rangel Morin MD, [facility] /EPI
== END 2020-04-08 11:51 | disposition home or self-care (01) ==
LOC: M.ERS 07:36
PROVIDERS: Personal Emergency Response Attendant
DX: L50.9 Urticaria, unspecified (principal); R03.0 Elevated blood-pressure reading, without diagnosis of hypertension; R60.9 Edema, unspecified